=== PATIENT | female | born 1965 | race Caucasian/White ===

== ENCOUNTER → 2018-09-21 | Outpatient (CLI) | payer BC ==
--- NOTE | 2018-09-21 15:56 | XR ---
Right wrist HISTORY: Wrist pain, swelling, trauma 8 months prior 3 views of the right wrist Remodeling is present radiocarpal joint with some joint space loss. Alignment, joint spaces otherwise maintained. Subchondral sclerosis present at the distal radius. IMPRESSION: Osteoarthritis.
== END | disposition home or self-care (01) ==
LOC: RADXRYALE 14:54
PROVIDERS: ATTEND Physician Assistant Medical
DX: M19.031 Primary osteoarthritis, right wrist (principal)

== ENCOUNTER → 2020-12-04 | Outpatient (CLI) | payer BC ==
[2020-12-04 10:21] VITALS: BP 131/81; PULSE 62; RESP 16; TEMP 98.1
--- NOTE | 2020-12-04 11:19 | P.HPOB ---
History of Present Illness H&P Date: 12/04/20 Chief Complaint: The patient is here for her routine gynecologic exam and ma mmogram. This is a 55-year-old with an LMP of 2012. The patient is here to establish with this office. It has been more than 10 years since her last pelvic exam. She is without gynecologic complaints and denies any postmenopausal bleeding. It has also been several years since her last mammogram. Review of Systems The patient's weight has been stable over the last year. She denies respiratory, cardiac, or G.I. problems. 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 History of Any Multi-Drug Resistant Organisms: None Reported Past Surgical History: Tonsillectomy Past Psychological History: Anxiety, Depression Smoking Status: Former smoker Past Alcohol Use History: Daily (2 beers per day) Additional Past Alcohol Use History / Comment(s): Quit smoking in 2006. 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 - Past Family History Mother Family Medical History: Cancer, Hyperlipidemia, Hypertension Additional Family Medical History / Comment(s): Breast cancer and cervical cancer. Sister(s) Family Medical History: Cancer, Hypertension, Myocardial Infarction ([place]) Additional Family Medical History / Comment(s): Breast cancer at age 50. Another sister had colon cancer and hypertension. Another sister had an [place]. Son(s) Family Medical History: Blood Disorder Additional Family Medical History / Comment(s): Schwachman-Diomond syndrome (bone marrow disorder) Medications and Allergies Home Medications Medication Instructions Recorded Confirmed Type Atorvastatin [Lipitor] 80 mg PO HS 12/04/20 12/04/20 History Sertraline HCl [Zoloft] 50 mg PO DAILY 12/04/20 12/04/20 History Triamterene/Hydrochlorothiazid 1 each PO DAILY 12/04/20 12/04/20 History [Triamterene-Hctz 37.5-25 mg Tb] buPROPion HCL [buPROPion HCL Xl] 150 mg PO DAILY 12/04/20 12/04/20 History lisinopriL 30 mg PO DAILY 12/04/20 12/04/20 History traZODone HCL 50 mg PO BID 12/04/20 12/04/20 History Allergies Allergy/AdvReac Type Severity Reaction Status Date / Time No Known Allergies Allergy Unverified 12/04/20 10:15 Exam Vital Signs Temp Pulse Resp BP Pulse Ox 12/04/20 10:15 98.1 F 62 16 131/81 99 Intake and Output 12/03/20 12/04/20 12/04/20 22:59 06:59 14:59 Other: Weight 71.214 kg Height 5 feet 4 inches, weight 157 pounds, BMI 26.9. This is a well-developed well-nourished white female who is alert and oriented times 3 in no acute distress. HEENT: Within normal limits. NECK: Supple without mass or thyromegaly. CHEST AND LUNGS: Clear to auscultation. HEART: Regular rate and rhythm. BREASTS: Are without mass or discharge. AXILLARY EXAM: Negative for adenopathy. BACK: Negative for CVA tenderness. ABDOMEN: Soft, nontender, without palpable masses. PELVIC EXAM: Normal external genitalia with mild atrophy. Cervix and vagina appear normal with mild atrophy. The cervix is slightly stenotic secondary to atrophy. There is no unusual discharge. There is no evidence of prolapse. The uterus is midposition, nongravid size and nontender. There are no palpable adnexal masses or tenderness. RECTAL EXAM: Rectovaginal exam is negative for mass or tenderness and is negative for occult blood. EXTREMITIES: Nontender. IMPRESSION: 1. 55-year-old menopausal female with normal gynecologic exam. 2. Strong family history of breast cancer and family history of colon cancer. PLAN: 1. Pap smear cotest was performed. 2. Self breast awareness was discussed with the patient. We have also discussed symptoms associated with inflammatory breast cancer. 3. Screening mammogram will be done today. 4. We have had a long discussion regarding cancer genetics and possible counseling and testing. She will talk with her mother and sister to see if they had cancer genetic testing such as BRCA testing. I have offered her a referral for cancer genetic counseling and possible testing. She will consider this and let me know if she is interested in getting a referral. 5. Osteoporosis prevention was discussed. I have stressed the importance of adequate calcium, vitamin D and regular exercise. Recommended amounts of calcium and vitamin D were also discussed. We will plan on doing bone density testing at age 59. 6. She has not received Covid vaccination. She did have Covid and Covid related illness in the past and has recovered. We have discussed how the CDC does recommend Covid vaccination even if she has had Covid. We have discussed pros and cons of the Covid vaccination. She will consider this. 7. I have recommended screening colonoscopy based on her age and family history of colon cancer. She was considering doing Cologuard testing. I think she is considered high risk because of her family history and therefore I am recommending colonoscopy at least every 5 years. She will discuss this with her PCP. 8. She was advised to return in one year for her annual well woman exam.
--- NOTE | 2020-12-05 09:59 | MM ---
Reason for exam: screening (asymptomatic). Last mammogram was performed 9 years and 6 months ago. History: Family history of breast cancer in sister at age 50 and breast cancer in mother at age 50. Physical Findings: A clinical breast exam by your physician is recommended on an annual basis and results should be correlated with mammographic findings. MG 3D Screening Mammo W/Cad Bilateral CC and MLO view(s) were taken. Prior study comparison: May 23, 2011, bilateral digital screening mammo w/CAD. November 29, 2009, bilateral digital screening mammogram. The breast tissue is heterogeneously dense. This may lower the sensitivity of mammography. There is no discrete abnormality. No significant changes when compared with prior studies. ASSESSMENT: Negative, BI-RAD 1 RECOMMENDATION: Routine screening mammogram of both breasts in 1 year.
== END ==
LOC: WWCWWP 09:58
PROVIDERS: ATTEND Obstetrics & Gynecology
DX: Z12.31 Encounter for screening mammogram for malignant neoplasm of breast (principal); Z01.419 Encounter for gynecological examination (general) (routine) without abnormal findings; E78.5 Hyperlipidemia, unspecified; I10 Essential (primary) hypertension; F41.9 Anxiety disorder, unspecified; F32.9 Major depressive disorder, single episode, unspecified; Z87.891 Personal history of nicotine dependence; Z79.899 Other long term (current) drug therapy; Z80.3 Family history of malignant neoplasm of breast
CPT/HCPCS: 77063; 77067

== ENCOUNTER → 2024-06-13 | Outpatient (CLI) | payer BC ==
[2024-06-13 13:50] VITALS: BP 131/79; PULSE 93; RESP 16; TEMP 99.7
--- NOTE | 2024-06-13 14:09 | P.HPOB ---
History of Present Illness H&P Date: 06/13/24 Chief Complaint: The patient is here for her routine gynecologic exam and ma mmogram. This is a 58-year-old G2, P2 with an LMP of 2013. The patient is without gynecologic complaints. Review of Systems She has gained about 4 pounds over the past 4 years. She denies respiratory, cardiac, or GI problems. 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 History of Any Multi-Drug Resistant Organisms: None Reported Past Surgical History: Tonsillectomy Past Psychological History: Anxiety, Depression Smoking Status: Former smoker Past Alcohol Use History: Daily (About 2 beers per night.) Additional Past Alcohol Use History / Comment(s): Quit smoking in 2006. Past Drug Use History: None Reported Additional History: She has been since 1987. 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 - Past Family History Mother Family Medical History: Cancer, Hyperlipidemia, Hypertension Additional Family Medical History / Comment(s): Breast cancer and cervical cancer. of lung cancer. Sister(s) Family Medical History: Cancer, Hypertension, Myocardial Infarction ([place]) Additional Family Medical History / Comment(s): Breast cancer at age 50. Another sister had lung cancer and hypertension. Another sister had an [place]. She denies family history of colon cancer. Son(s) Family Medical History: Blood Disorder Additional Family Medical History / Comment(s): Schwachman-Diomond syndrome (bone marrow disorder) Medications and Allergies Home Medications Medication Instructions Recorded Confirmed Type Atorvastatin [Lipitor] 80 mg PO HS 12/04/20 12/04/20 History Sertraline HCl [Zoloft] 50 mg PO DAILY 12/04/20 12/04/20 History Triamterene/Hydrochlorothiazid 1 each PO DAILY 12/04/20 12/04/20 History [Triamterene-Hctz 37.5-25 mg Tb] buPROPion HCL [buPROPion HCL Xl] 150 mg PO DAILY 12/04/20 12/04/20 History lisinopriL [Prinivil] 30 mg PO DAILY 12/04/20 12/04/20 History traZODone HCL 50 mg PO BID 12/04/20 12/04/20 History Allergies Allergy/AdvReac Type Severity Reaction Status Date / Time No Known Allergies Allergy Unverified 06/13/24 13:42 Exam Vital Signs Temp Pulse Resp BP Pulse Ox 06/13/24 13:45 99.7 F H 93 16 131/79 97 Intake and Output 06/12/24 06/13/24 06/13/24 22:59 06:59 14:59 Other: Weight 73.028 kg Height 5 feet 3 inches, weight 161 pounds, BMI 28.5 This is a well-developed well-nourished white female who is alert and oriented times 3 in no acute distress. HEENT: Within normal limits. NECK: Supple without mass or thyromegaly. CHEST AND LUNGS: Clear to auscultation. HEART: Regular rate and rhythm. BREASTS: Are without mass or discharge. AXILLARY EXAM: Negative for adenopathy. BACK: Negative for CVA tenderness. ABDOMEN: Soft, nontender, without palpable masses. PELVIC EXAM: Normal external genitalia with mild atrophy. Cervix and vagina appear normal with mild atrophy. There is no unusual discharge. There is no evidence of prolapse. The uterus is midposition, nongravid size and nontender. There are no palpable adnexal masses or tenderness. RECTAL EXAM: Rectovaginal exam is negative for mass or tenderness and is negative for occult blood. EXTREMITIES: Nontender. IMPRESSION: 1. 58-year-old menopausal female with normal gynecologic exam. 2. Family history of breast cancer in her mother and sister, and a lung cancer in her mother and another sister. PLAN: 1. Pap smear was deferred since she had a negative Pap smear cotest on 12/04/2020. 2. Self breast awareness was discussed with the patient. We have also discussed symptoms associated with inflammatory breast cancer. 3. Screening mammogram will be done today. 4. Osteoporosis prevention was discussed. I have stressed the importance of adequate calcium, vitamin D and regular exercise. Recommended amounts of calcium and vitamin D were also discussed. And doing a bone density test at age 59. 5. Colorectal cancer screening was discussed. She states she had a negative Cologuard test earlier this year. She will continue to do this through her PCP. 6. She was advised to return in one year for her annual well woman exam. We will plan on repeating her Pap smear cotest next year. I have stressed the importance of having yearly exams and not waiting several years.
--- NOTE | 2024-06-13 15:20 | MM ---
Reason for Exam: Screening (asymptomatic). Last mammogram was performed 3 year(s) and 6 month(s) ago. Patient History: Menarche at age 11. First Full-Term at age 24. Postmenopausal. Sister had breast cancer, age 50. Mother had breast cancer, age 50. Risk Values: Anitra 5 year model risk: 4.8%. NCI Lifetime model risk: 23.7%. Prior Study Comparison: 05/23/2011 Bilateral Screening Mammogram, [facility]. 12/04/2020 Bilateral Screening Mammogram, [facility]. Tissue Density: The breasts are heterogeneously dense, which may obscure small masses. Findings: There is no suspicious group of microcalcifications or new suspicious mass in either breast. Overall Assessment: Negative, BI-RAD 1 Management: Screening Mammogram of both breasts in 1 year. Some advise annual bilateral breast ultrasound surveillance in patients with background dense tissue. Patient should continue monthly self-breast exams. A clinical breast exam by your physician is recommended on an annual basis. This exam should not preclude additional follow-up of suspicious palpable abnormalities. Note on Anitra scores and lifetime risk: 1. A Anitra score greater than 3% is considered moderate risk. If this is the case, consider specialist referral to assess eligibility for a risk reducing agent. 2. If overall lifetime risk for the development of breast cancer is 20% or higher, the patient may qualify for future screening with alternating mammogram and breast MRI. [facility], , 06/13/2024 3:17 PM. Electronically signed and approved by: Prasad Best M.D.
== END ==
LOC: WWCWWP 13:21
PROVIDERS: ATTEND Obstetrics & Gynecology
DX: Z12.31 Encounter for screening mammogram for malignant neoplasm of breast (principal); Z01.419 Encounter for gynecological examination (general) (routine) without abnormal findings; Z78.0 Asymptomatic menopausal state; Z87.891 Personal history of nicotine dependence
CPT/HCPCS: 77063; 77067